=== PATIENT | female | born 1980 | race African-American/Black ===

== ENCOUNTER 2019-03-17 18:15 | Emergency (ER) | payer OTHER ==
[~2019-03-17] VITALS: Ht 175.3 cm; Wt 82.6 kg
[2019-03-17 18:20] VITALS: Ht 175.3 cm; Wt 82.6 kg
[2019-03-17 19:48] LABS: BASOPHIL % 1.2 % (0-2); PLATELET COUNT 306 x10^3mcL (130-400)
[2019-03-17 19:57] LABS: CALCIUM 8.7 mg/dL (8.5-10.1); CARBON DIOXIDE 30.6 mmol/L (21-32); CHLORIDE SERUM 106 mmol/L (98-107); CREATININE SERUM 0.9 mg/dL (0.6-1.0); GFR1 > 60 mL/min; GLUCOSE SERUM 88 mg/dL (74-106); POTASSIUM SERUM 4.6 mmol/L (3.5-5.1); SODIUM SERUM 142 mmol/L (136-145)
[2019-03-17 19:58] LABS: RED CELL DISTRIBUTION WIDTH 15.4 % (11.5-14.5)
[2019-03-17 20:01] LABS: ALBUMIN 3.6 g/dL (3.4-5.0); ALKALINE PHOSPHATASE 62 U/L (46-116); ALT/SGPT 16 U/L (14-59); AST/SGOT 16 U/L (15-37); BILIRUBIN TOTAL 0.6 mg/dL (0.20-1.00); LIPASE 858 IU/L (73-393); TOTAL PROTEIN, SERUM 8.2 g/dL (6.4-8.2)
[2019-03-17 20:07] LABS: microscopic required? YES; urine erythrocyte 1+ (NEGATIVE)
[2019-03-18 00:04] VITALS: BP 127/87
== END 2019-03-18 00:04 | disposition home or self-care (01) ==
LOC: ED 18:15
PROVIDERS: Emergency Medicine
DX: R10.13 Epigastric pain (principal); D25.9 Leiomyoma of uterus, unspecified; Z88.5 Allergy status to narcotic agent
CPT/HCPCS: 36415; Q9967